=== PATIENT | female | born 1980 | race Caucasian/White ===

== ENCOUNTER → 2024-03-30 | Outpatient (CLI) | payer OTHER, SELFPAY ==
[2024-03-30 09:36] LABS: Absolute Lymphocyte Count 1.98 X10^3/uL (0.83-4.51); Absolute Neutrophil Count 5.2 X10^3/uL (2.0-7.7); Basophil# 0.05 X10^3/uL; Basophil% 0.6 % (0-1); Eosinophils% 1.3 % (0-5); Hematocrit 43.6 % (37-47); Hemoglobin 13.6 g/dL (12.0-15.0); Lymphocyte # 1.98 X10^3/ul (0.83-4.51); Lymphocyte % 24.8 % (19-41); Mean Corp Hgb Conc 31.2 g/dL (32-36); Mean Corpuscular Hgb 29.5 pg (27.0-32.0); Mean Corpuscular Volume 94.6 fL (81-99); Mean Platelet Vol. 9.2 fl (6.2-12.0); Monocyte# 0.64 X10^3/uL; NRBC Flagged by Analyzer 0 % (0-5); Neutrophil # 5.15 X10^3/uL (2.7-7.7); Neutrophil % 64.5 % (47-70); Platelet Count 344 K/mm3 (150-450); RBC Distribution Width CV 15.9 % (11.6-14.6); RBC Distribution Width SD 55.2 fl (35.1-43.9); Red Blood Count 4.61 M/mm3 (4.2-5.4)
[2024-03-30 09:44] LABS: Erythrocyte Sedimentation Rate 16 mm/hr (0-30)
[2024-03-30 10:08] LABS: ALB/GLOB Ratio 0.8 RATIO (0.9-2.4); AST(SGOT) 17 U/L (15-37); Alanine Aminotransfer ALT/SGPT 24 U/L (13-56); Albumin, Serum 3.4 g/dL (3.2-5.0); Alkaline Phosphatase 91 U/L (45-117); Anion Gap 6 (5-15); BUN 4 mg/dL (7-18); BUN/Creat Ratio 4.2 RATIO (10-20); Calcium,Total 9.5 mg/dL (8.5-10.1); Chloride 106 mmol/L (98-107); Creatinine, Serum 0.95 mg/dL (0.55-1.02); EST Glomerular Filtration Rate 68 mL/min (>60); Est Glom Filt Rate - Afr Amer 83 mL/min (>60); Globulin 4.2 g/dL (2.2-4.2); Glucose 102 mg/dL (74-106); Potassium 3.8 mmol/L (3.5-5.1); Protein, Total 7.6 g/dL (6.4-8.2); Sodium Level 139 mmol/L (136-145)
[2024-03-31 15:08] LABS: Anti-Centromere B Ab <0.2 AI (0.0-0.9); Anti-Chromatin <0.2 AI (0.0-0.9); Anti-Jo <0.2 AI (0.0-0.9); Anti-Scleroderma-70 AB <0.2 AI (0.0-0.9); Anti-dsDNA Ab <1 IU/mL (0-9); RNP Ab <0.2 AI (0.0-0.9); SJOGREN'S Anti-SS-A test < 0.2 AI (0.0-0.9); SJOGREN'S Anti-SS-B test < 0.2 AI (0.0-0.9); Smith Ab <0.2 AI (0.0-0.9)
== END | disposition home or self-care (01) ==
PROVIDERS: PCP Nurse Practitioner Family; Referring Provider Internal Medicine Gastroenterology; Visit Provider Internal Medicine Gastroenterology
DX: K57.92 Diverticulitis of intestine, part unspecified, without perforation or abscess without bleeding (principal)
CPT/HCPCS: 36415; 80053; 83516; 85025; 85652; 86036; 86140; 86225; 86235; 86256; 86671

== ENCOUNTER 2024-04-18 05:24 | Day surgery (SDC) | payer OTHER, SELFPAY ==
[2024-04-18 05:47] VITALS: BP 123/91; PULSE 76; RESP 18; TEMP 36.7; O2SAT 100; BMI 51.7
[2024-04-18] MEDS: Lactated Ringers 1,000 ML 15 ML IV (05:57)
--- NOTE | 2024-04-18 06:20 | PCM.PRE.AN2 ---
ASA Classification* ASA Classification ASA Classification: 3 Assessment & Plan Anesthesia* Anesthesia Assessment Anesthesia Assessment: Discussed sedation and/or anesthesia options, risks, benefits, and alternatives with patient/parents/legal guardian/POA. Questions invited. The patient/parents/legal guardian/POA seems to understand and agrees to proceed with anesthesia plan. Reviewed the physical assessment, medical history, allergy history and patient home medications list prior to surgery/procedure/anesthetic and documented any changes. Performed airway and anesthesia risk assessments. Anesthesia Type Anesthesia Type: MAC Anesthesia Focused Assessment* Temperature: 98.1 F Pulse Rate: 76 Blood Pressure: 123/91 Respiratory Rate: 18 Pulse Ox: 100 Airway Assessment Mouth opens: >3 cm Mallampati Score: II Focused Labs Anesthesia Preop lab: CBC WBC 8.0 K/mm3 (4.4-11.0) 03/30/24 09:00 RBC 4.61 M/mm3 (4.2-5.4) 03/30/24 09:00 Hgb 13.6 g/dL (12.0-15.0) 03/30/24 09:00 Hct 43.6 % (37-47) 03/30/24 09:00 Plt Count 344 K/mm3 (150-450) 03/30/24 09:00 CHEMISTRY Potassium 3.8 mmol/L (3.5-5.1) 03/30/24 09:00 Sodium 139 mmol/L (136-145) 03/30/24 09:00 BUN 4 mg/dL (7-18) L 03/30/24 09:00 Creatinine 0.95 mg/dL (0.55-1.02) 03/30/24 09:00 Glucose 102 mg/dL (74-106) 03/30/24 09:00 COAG Pre-Assessment Diagnosis/Proposed Procedure Planned Operative Procedure(s): CSCOPE Anesthesia History 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 When Was Last Pacemaker Check QUESTION #4 FULL TEXT: You/Your Family Experience fever (hyperthermia) with Anesthesia Last Oral Intake Last Oral intake: Last Oral Intake NPO since 02:30 04/18/24 05:47 Meds taken in AM with sips of No 04/18/24 05:47 water? Meds patient instructed to take am of surgery PONV PONV - principal clerk typist: PONV - principal clerk typist Female Yes 04/16/24 10:19 HX of Motion Sickness No 04/16/24 10:19 HX of N/V After Surgery No 04/16/24 10:19 Non-Smoker Yes 04/16/24 10:19 Duration of Surgery greater No 04/16/24 10:19 than 60 minutes Number of Risk Factors 2 04/16/24 10:19 PONV Score Moderate Risk 04/16/24 10:19 Height & Weight Height & Weight: Anesthesia: Height & Weight Height 5 ft 7 in 04/18/24 05:47 Weight: 150 kg 04/18/24 05:47 Body Mass Index (BMI) 51.7 04/18/24 05:47 Respiratory Assessment Respiratory Assessment - principal clerk typist: Respiratory Tract Infection Hx - principal clerk typist Hx Respiratory Tract Infection No 04/16/24 10:19 STOP Sleep Apnea STOP Sleep Apnea - principal clerk typist: STOP Sleep Apnea - principal clerk typist Hx Hypertension No 04/16/24 10:19 Hx Sleep Apnea No 04/16/24 10:19 CPAP BIPAP Do you snore loudly (louder No 04/16/24 10:19 than talking or can be heard Do you often feel tired/ No 04/16/24 10:19 fatigued/ sleepy during daytime? Has anyone observed you stop No 04/16/24 10:19 breathing during sleep? STOP Results Negative 04/16/24 10:19 QUESTION #5 FULL TEXT : Do you snore loudly (louder than talking or can be heard through closed doors)? 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 Specify any problems Hx of Preganancy in last 3 No 04/16/24 10:19 Months Nurse Filling Out Transfusion DSCHRIBER 04/16/24 10:19 & Questions: Date: 04/16/24 04/16/24 10:19 Time: 10:21 04/16/24 10:19 Patient unable to answer at this time (ie. confused, unrespo /Reproduction History /Reproductive History - principal clerk typist: /Reproductive Hx- principal clerk typist Hx Now No 04/16/24 10:19 Gestational Age (in weeks): EDC: Hx Hx Para Hx Section SAB No 04/16/24 10:19 Active Medications Active Medications: Current Medications Generic Name Dose Route Start Last Admin Trade Name Freq PRN Reason Stop Dose Admin Lactated Ringer's 1,000 mls @ 15 mls/hr 04/18/24 05:45 04/18/24 05:57 IV 15 mls/hr .Q48H RICA Administration PFSH Medical History Wears contact lenses Arthritis Back pain Migraine headache Syncope History of diverticulitis Heartburn Shortness of breath on exertion Non-smoker History of pain when walking History of edema Home Medications ?Medication ?Instructions ?Recorded ?Last Taken ?Type NK 03/30/24 Unknown History Allergy/AdvReac Type Severity Reaction Status Date / Time No Known Allergies Allergy Verified 04/18/24 05:45 Surgical History History of appendectomy Social History Smoking Status: Never smoker Review of Systems (Anesthesia) ROS Narrative System reviewed and no additional complaints, except as documented.
--- NOTE | 2024-04-18 06:30 | COLBX_PTH ---
PATIENT: YO RIVERA LOC: EN U#:[id number] AGE/SX: 43/F ROOM: RE04/18/[address]: Dr. Zackary Ovalle DO : 1980 BED: DIS: 04/18/2024 SPEC #: [id number] RECD: 04/18/24 09:33 STATUS: RENU CESAR #: [id number] EMILY: 04/18/24 06:[address]: Zackary Ovalle DEPT: SURGICAL PATHOLOGY RECD BY: Garrett Roblero ENTERED: 04/18/24 14:13 SP TYPE: COLON BX OTHR DR: Mana Rivera, COUPLING MACHINE OPERATOR-C Tissues: Sigmoid colon biopsy Procedures: Surgery Specimen Level IV HEADER OPERATION: Colonsocpy with biopsy PRE-OP DIAGNOSIS: Diverticulitis TISSUE SUBMITTED: Sigmoid colon biopsy MICROSCOPIC DIAGNOSIS Sigmoid colon, biopsy: Fragments of colonic mucosa, no pathologic diagnosis. 04/19/2024 MICROSCOPIC DESCRIPTION Slides are reviewed. GROSS DESCRIPTION Received in fixative is one container labeled with the patient's name and designated Sigmoid colitis biopsy. The specimen consists of two irregular fragments of light nicholson soft tissue that in aggregate measure 0.6 x 0.3 x 0.1 cm. The specimen is totally submitted in one cassette. 04/18/2024 TC:4 CPT:02378
--- NOTE | 2024-04-18 06:30 | PCM.HP.BLA ---
History and Physical Date of Admission: 04/18/24 YO RIVERA, is a 43 F who presents to the office today for initial consult. *I established 03.30.24 pt states that she was referred for diverticulitis. Pt reports that she was diagnosed with diverticulitis in 2021 and has had a few flare up since then. She began taking Vyvanse in September of this year and was told that could have caused her flare, she stopped taking the medication in January when she had a flare. Pt reports that she has never had a colonoscopy. ROS Const Constitutional: No fatigue, fever(s) or weight change ENT ENT: No difficulty swallowing Gastro GI: Positive for abdominal pain, bloating, change in bowel habits, constipation, diarrhea, heartburn and excessive flatus; No belching, change in stool character, coffee ground emesis, cramping, difficulty swallowing, feeling full early, incontinent of stools, Vomiting blood/hematemesis, Blood in stool, loose stools, Black,tarry stools, nausea/dyspepsia, pain with swallowing, vomiting or other Musc Musculoskeletal: Positive for joint pain, back pain, Arthritis and sciatica Skin Skin: No yellowing of the eye or itchy eyes Psych Psychiatric: No anxiety and No depression Endo Endocrine: No fatigue or weight change Aller/Imm Allergy/Immunologic: No itchy eyes Bj/Lymp Hematologic/Lymphatic: No easy bleeding or easy bruising Exam Const General: cooperative and comfortable Nutritional Appearance: average body habitus and well nourished [facility] Head: normal to inspection Ears: hearing grossly normal bilaterally Nose: external nose normal Face and sinus: normal facial exam Mouth: oral mucosae normal Throat: posterior oropharynx normal Eyes General: appearance normal, both eyes and all related structures Neck Neck: normal visual inspection Chest Chest palpation & inspection: normal inspection of the chest and normal palpation of entire chest wall Resp Effort & Inspection: normal respiratory effort Auscultation: Bilateral: Clear to Auscultation Cardio Palpation: normal PMI Rate: regular rate Rhythm: regular rhythm GI Inspection: normal to inspection Auscultation: normal bowel sounds Percussion: normal to percussion Palpation: no hepatosplenomegaly Skin General: no rashes or lesions noted Neuro General: patient alert Extrem General: normal to inspection Psych Affect: normal affect Assessment and Plan Assessment and Plan (1) Diverticulitis: Status: Acute Plan: She possibly has sigmoid colitis associated with diverticulosis that is allowing her to have repeated episodes of diverticulitis. She is also had an episode of microperforation with cold abscess. I would recommend colonoscopy for staging purposes. I gave her website that actually talks about sigmoid colitis associated with diverticulosis and the algorithms. We will get biochemical workup and possibly repeat imaging to make sure she is not have inflammatory bowel disease or another disease affecting the colon. I have examined the patient and the H&P has been reviewed. There are no clinical changes since date of exam.
[2024-04-18 06:39] VITALS: BP 123/91; PULSE 76; RESP 18; TEMP 36.7; O2SAT 100
[2024-04-18 07:05] VITALS: BP 105/71; BP 123/91; PULSE 71; RESP 16; TEMP 36.9; O2SAT 98
--- NOTE | 2024-04-18 07:06 | OP.COLON_ITS ---
Patient Name: Natalie Beckett Procedure Date: 04/18/2024 6:23 AM Date of : 1980 Age: 43 Procedure: Colonoscopy Indications: Abnormal CT of the GI tract, Diverticulitis Providers: Zackary Ovalle DO Referring MD: Carson Hernandez Medicines: Monitored Anesthesia Care Patient Profile: This is a 43 year old female. Refer to note in patient chart for documentation of history and physical. Last Colonoscopy: none. The patient's first colonoscopy is today. Complications: No immediate complications. Procedure: Pre-Anesthesia Assessment: - Prior to the procedure, a History and Physical was performed, and patient medications and allergies were reviewed. The patient is competent. The risks and benefits of the procedure and the sedation options and risks were discussed with the patient. All questions were answered and informed consent was obtained. Patient identification and proposed procedure were verified by the physician in the pre-procedure area. Mental Status Examination: alert and oriented. Airway Examination: normal oropharyngeal airway and neck mobility. Respiratory Examination: clear to auscultation. CV Examination: normal. Prophylactic Antibiotics: The patient does not require prophylactic antibiotics. Prior Anticoagulants: The patient has taken no anticoagulant or antiplatelet agents except for NSAID medication. ASA Grade Assessment: II - A patient with mild systemic disease. After reviewing the risks and benefits, the patient was deemed in satisfactory condition to undergo the procedure. The anesthesia plan was to use monitored anesthesia care (MAC). Immediately prior to administration of medications, the patient was re-assessed for adequacy to receive sedatives. The heart rate, respiratory rate, oxygen saturations, blood pressure, adequacy of pulmonary ventilation, and response to care were monitored throughout the procedure. The physical status of the patient was re-assessed after the procedure. After I obtained informed consent, the scope was passed under direct vision. Throughout the procedure, the patient's blood pressure, pulse, and oxygen saturations were monitored continuously. The colonoscope was introduced through the anus and advanced to the cecum, identified by appendiceal orifice and ileocecal valve. The colonoscopy was performed without difficulty. The patient tolerated the procedure well. The quality of the bowel preparation was adequate. The terminal ileum, ileocecal valve, appendiceal orifice, and rectum were photographed. Scope In: 6:45:13 AM Scope Withdrawal Time 0 hours 11 minutes 11 seconds Scope Out: 6:59:34 AM Total Procedure Duration Time 0 hours 14 minutes 21 seconds Findings: The perianal and digital rectal examinations were normal. A few small-mouthed diverticula were found in the recto-sigmoid colon. Localized mild inflammation characterized by congestion (edema) and erythema was found in the recto-sigmoid colon and in the sigmoid colon. Biopsies were taken with a cold forceps for histology. Verification of patient identification for the specimen was done. Estimated blood loss was minimal. Impression: - Diverticulosis in the recto-sigmoid colon. - Localized mild inflammation was found in the recto-sigmoid colon and in the sigmoid colon secondary to colitis. Biopsied. Recommendation: - Discharge patient to home. - Resume previous diet. - Continue present medications. - Await pathology results. - Repeat colonoscopy in 10 years for screening purposes. Procedure Code(s): --- Professional --- 84168, Colonoscopy, flexible; with biopsy, single or multiple CPT copyright 2021 [employer]. All rights reserved. The codes documented in this report are preliminary and upon health information coder review may be revised to meet current compliance requirements. Zackary Ovalle DO 04/18/2024 7:05:43 AM This report has been signed electronically. Number of Addenda: 0 Note Initiated On: 04/18/2024 6:23 AM
--- NOTE | 2024-04-18 07:07 | OP.CCLET_ITS ---
04/18/2024 Carson Hernandez Re : Colonoscopy procedure for Natalie Beckett Dear Sujit This procedure was performed on Thursday, April 18, 2024. My impressions and recommendations are as follows: Impressions : - Diverticulosis in the recto-sigmoid colon. - Localized mild inflammation was found in the recto-sigmoid colon and in the sigmoid colon secondary to colitis. Biopsied. Recommendations : - Discharge patient to home. - Resume previous diet. - Continue present medications. - Await pathology results. - Repeat colonoscopy in 10 years for screening purposes. My findings are described in the full procedure note, which is enclosed. If I can be of further assistance, please feel free to contact me at . Sincerely, Zackary Ovalle, 04/18/2024 7:05:43 AM This report has been signed electronically.
--- NOTE | 2024-04-18 07:09 | PCM.POST.ANE ---
Anesthesia: Postop Eval I Current Vital Signs Temperature: 98.5 F Pulse Rate: 72 Blood Pressure: 105/69 Respiratory Rate: 16 Pulse Ox: 100 Oxygen Delivery Method: Room Air Assessment Airway patent: Yes Spontaneous unlabored respirations: Yes Mental status: Awake and Calm nausea: No Vomiting: No Anesthesia Complication: No Fluid Hydration Crystalloid volume administer (ml): 400 Total IV fluid infused: 400 Progress Note Anesthesia document: Postop Eval 1 completed: Yes
[2024-04-18 07:10] VITALS: BP 103/74; BP 105/69; BP 123/91; PULSE 66; PULSE 72; RESP 16; TEMP 36.9; O2SAT 100; O2SAT 97
[2024-04-18 07:15] VITALS: BP 123/91; BP 98/67; PULSE 68; RESP 16; TEMP 36.3; O2SAT 97
[2024-04-18 07:29] VITALS: BP 123/91
--- NOTE | 2024-04-18 13:39 | PCM.POSTANE2 ---
Anesthesia Postop Eval I Sum Postop Eval Completion status Anesthesia document: Postop Eval 1 completed: Yes Anesthesia Postop Eval I Summary Anesthesia Postop Eval I Summary: Anesthesia Postop Eval I: Assessment Summary Airway patent Yes 04/18/24 07:10 [email or web address] Spontaneous unlabored Yes 04/18/24 07:10 [email or web address] respirations Mental status Awake,Calm 04/18/24 07:10 [email or web address] nausea No 04/18/24 07:10 [email or web address] Vomiting No 04/18/24 07:10 [email or web address] Anesthesia Postop Eval I: Fluid Summary Crystalloid volume administer 400 04/18/24 07:10 [email or web address] (ml) Colloids volume administered ( ml) Blood Product volume administered (ml) Total IV fluid infused 400 04/18/24 07:10 [email or web address] Anesthesia Postop Eval I: Summary Notes Anesthesia Complication No 04/18/24 07:10 [email or web address] Anesthesia Complication Comment: Post-operative progress note Anesthesia: Postop Eval II Evaluation Mental status: Awake Pain Level: 0 nausea: No Vomiting: No
== END 2024-04-18 07:51 | disposition home or self-care (01) ==
LOC: EN 05:24 → AC 05:25
PROVIDERS: PCP Nurse Practitioner Family; Referring Provider Nurse Practitioner Family; Visit Provider Internal Medicine Gastroenterology
PROC: 0DJD8ZZ Inspection of Lower Intestinal Tract, Via Natural or Artificial Opening Endoscopic (ICD-10-PCS; CPT 45378; principal; 2024-04-18 06:25)
DX: K57.92 Diverticulitis of intestine, part unspecified, without perforation or abscess without bleeding (principal); K57.30 Diverticulosis of large intestine without perforation or abscess without bleeding; K52.9 Noninfective gastroenteritis and colitis, unspecified
CPT/HCPCS: 45380; 88305; J7120; J2405